=== PATIENT | male | born 1995 | race Caucasian/White ===

== ENCOUNTER 2024-06-09 21:35 | Emergency (ER) | payer OTHER, SELFPAY ==
[2024-06-09 21:44] VITALS: BP 133/90
--- NOTE | 2024-06-09 23:10 | EDRN ---
pt states he was at work at [employer], he was cutting out a windshield when a small piece of glass hit his right eye. pt states he was wearing protective glasses. pt states he irrigated his eye but still feels something moving in his eye.
--- NOTE | 2024-06-09 23:10 | ED.GENMED ---
History of Present Illness
General
Chief Complaint: Eye Problems
Source: patient
Exam Limitations: none
Time Seen by Provider: 06/09/24 23:09
Nursing documentation reviewed up to this point in time: agreed with
History of Present Illness
History of Present Illness:
This is a 28-year-old male with past medical history of corneal abrasions presents emergency department today with concerns of transient foreign body sensation and discomfort in his right eye. Patient reports that he was at work today and was
wearing eye protection when he was installing [employer] when the piece broke off and he felt a piece of glass fly into his eye. Patient states that when he went home from work, he immediately irrigated his eye with normal saline multiple times that
he got from his friend who is a doctor. Patient reports that he would have on and off sensation of something moving around his eye. He subsequently rinsed his eye again 2 more times and eventually the foreign body sensation went away however his
eye started to come up a bit red and irritated. Patient also states that he had one episode of purulent drainage from the right eye that has since resolved. He denies any blurry vision. He denies any visual loss. He denies any headache, neck
pain, dizziness, lightheadedness, loss of consciousness. Patient states that he has had multiple corneal abrasions in the same eye in the past from work-related injuries but is never seen an embedded case manager before.
Review of Systems
Review of Systems
All Other Systems: ROS reviewed and negative except as documented in HPI and ROS
Phy Exam
Physical Exam
Physical Exam:
General: Patient is well appearing and in no acute distress; non-toxic
Skin: Warm and dry, no rashes or lesions
Head: Normocephalic, atraumatic. No facial swelling or edema
Eyes: EOMs intact, right scleral injection noted, no foreign body with eyelid eversion, lateral scleral abrasion noted no fluorescein uptake over the cornea; right eye visual Acquity 20/16, left eye 20/6; no evidence of purulent drainage in the
right eye
Cardiac: Regular rate and rhythm, no murmurs
Peripheral Vascular: No lower extremity swelling or edema
Pulm: Normal respiratory effort
Neuro: CN II-XII intact, no focal neurologic deficits.
Psychiatric: Appropriate mood and affect.
Course
Orders/Labs/Results
Orders:
Orders
06/09/24 23:54
Fluorescein Sodium [Ful-Xiao] 2 mg .ROUTE .STK-MED ONE
Purified Water Eye Wash [Dacriose Eye Wash Solution] 120 ml .ROUTE .STK-MED ONE
Tetracaine HCl [Tetracaine 0.5% Ophthalmic Solution] 1 drop .ROUTE .STK-MED ONE
Vital Signs
Initial and Last Documented VS:
Initial Vital Signs
Temp Pulse Resp BP Pulse Ox
98.2 F 77 18 133/90 98
06/09/24 21:44 06/09/24 21:44 06/09/24 21:44 06/09/24 21:44 06/09/24 21:44
Last Documented Vital Signs
Temp Pulse Resp BP Pulse Ox
98.2 F 77 18 133/90 98
06/09/24 21:44 06/09/24 21:44 06/09/24 21:44 06/09/24 21:44 06/09/24 21:44
MDM/Problems Addressed
Differential Diagnosis Includes:
ddx include corneal abrasion, corneal ulcer, conjunctivitis, ocular foreign body
MDM/Problems Addressed:
This is a 28-year-old male with past medical history of corneal abrasions presents emergency department today with concerns of transient foreign body sensation and discomfort in his right eye. Upon my evaluation, he has no sensation of foreign
body, no blurry vision but does have some mild pain and scleral injection. On exam, is no fluorescein take in the cornea but does have a scleral abrasion, he has no foreign body with eyelid eversion. He irrigated well at home. Use of antibiotic
eyedrops and continuing to irrigate with saline at home. Patient stable for discharge. Did stress importance of follow-up with ophthalmology. Red flag return precautions discussed.
Chronic conditions affecting care:
n/a
*Pulse Oximetry
Patient hypoxic: no
*Critical Care Note
Total Time (30-74mins, 75-104mins- exclusive of procedures): Not Applicable
Data Reviewed
Review of Other/Old Records Reveals: Records (No previous ER physician documentation to review)
Source: patient and records
ED Attending Note
-
Portions of this chart may have been created with voice recognition software.� Occasional wrong word or��sound alike� substitutions may have occurred due to the inherent limitations of voice recognition software.
Discharge Plan
Departure
Patient Disposition: Home (Routine Discharge)
Date of Disposition: 06/09/24
Time of Disposition: 23:44
Patient with high blood pressure during this ER visit?: No
Condition: Good
Discharge Problem:
Abrasion of sclera of right eye
Instructions: Foreign Body in Eye ED, BLOOD PRESSURE
Prescriptions:
New
ofloxacin 0.3 % drops
2 drp ophthalmic (eye) QID 5 Days Qty: 5 0RF
Referrals:
NONE,* [Family Provider] -
Ina Singh MD [Active] - Call in 1-3 days for appt
Activity Restrictions/Additional Instructions:
With fluorescein staining, there is no evidence of corneal abrasion or ulcer. There is a abrasion on the sclera which is less concerning. Please start taking ofloxacin eyedrops. You can instill 2 drops into the affected eye 4 times daily for 5
days.
Ophthalmology: call attached number for Dr. Singh's office to schedule an appointment.
Please continue to irrigate your eye with saline multiple times per day for the next few days.
You can alternate Tylenol and Motrin for pain.
PLEASE RETURN EMERGENCY DEPARTMENT SHOULD YOU DEVELOP VISUAL LOSS, ACUTE WORSENING OF YOUR PAIN, BLEEDING, FURTHER PURULENT DRAINAGE FROM YOUR EYE, FEVERS OR CHILLS, REDNESS OR SWELLING OF YOUR FACE, OR ANY OTHER SIGNS OR SYMPTOMS WORRISOME TO YOU.
Interventions
Interventions:
*Risk Screen - Suicide Last Done: 06/09/24 21:44
*General Assessment Last Done: 06/09/24 21:44
*Neglect/Abuse Screening Last Done: 06/09/24 21:44
*ED- Fall Risk Assessment Last Done: 06/09/24 21:44
*ED COVID-19 Vaccine History Last Done: 06/09/24 21:44
*Nursing Disposition Last Done: 06/10/24 00:17
Discharge Date and Time
Discharge Date/Time: 06/10/24 00:17
Print Language: KENYAN
--- NOTE | 2024-06-09 23:43 | EDRN ---
When RN asked pt. if he is supposed to wear corrective lenses pt. stated, 'my doctor did tell me I should wear corrective lenses, but the told me I don't need to, so I don't wear any. My left eye is the eye I have a hard time seeing out of'.
== END 2024-06-10 00:17 | disposition home or self-care (01) ==
LOC: EMR 21:35
PROVIDERS: EMERGENCY PHYSICIAN Student in an Organized Health Care Education/Training Program
DX: S05.01XA Injury of conjunctiva and corneal abrasion without foreign body, right eye, initial encounter (principal); W20.8XXA Other cause of strike by thrown, projected or falling object, initial encounter
CPT/HCPCS: 99283

== ENCOUNTER 2024-11-12 21:10 | Emergency (ER) | payer SELFPAY ==
[2024-11-12 21:16] VITALS: BP 137/101
[2024-11-12 21:33] VITALS: BMI 29.4
[2024-11-12] MEDS: FLEXERIL 10 MG PO (23:14)
[2024-11-12] MEDS: PERCOCET 5/325 1 TABLET PO (23:14)
--- NOTE | 2024-11-13 00:32 | ED.GENMED ---
History of Present Illness
General
Chief Complaint: Back Pain
Time Seen by Provider: 11/12/24 22:15
Course
Orders/Labs/Results
Orders:
Orders
11/12/24 22:38
Cyclobenzaprine HCl [Flexeril] 10 mg PO NOW STA
Oxycodone/Acetaminophen [Percocet 5/325] 1 tablet PO NOW STA
11/12/24 22:46
CT Lumbar Spine W/o Iv Contras Urgent
Comment:
Reason For Exam: LBP, compression feeling
11/13/24 00:28
Ketorolac [Toradol] 15 mg IV NOW STA
11/13/24 01:08
Dexamethasone Pf [Decadron] 10 mg PO NOW STA
Vital Signs
Initial and Last Documented VS:
Initial Vital Signs
Temp Pulse Resp BP Pulse Ox
97.9 F 89 18 137/101 98
11/12/24 21:16 11/12/24 21:16 11/12/24 21:16 11/12/24 21:16 11/12/24 21:16
Last Documented Vital Signs
Temp Pulse Resp BP Pulse Ox
97.9 F 89 18 137/101 98
11/12/24 21:16 11/12/24 21:16 11/12/24 21:16 11/12/24 21:16 11/13/24 00:32
*Radiology
Radiology exam reviewed: radiology read reviewed
*Pulse Oximetry
SaO2: 98
Oxygen Mode of Delivery: Room air
Patient hypoxic: no
*Critical Care Note
Total Time (30-74mins, 75-104mins- exclusive of procedures): Not Applicable
Update Note
Update Note:
NAME: LENIN KOO
DATE OF EXAM: 11/12/2024
Patient No: [id number]
Physician: BENJI^Alex
Date of : 1995
Past Medical History (entered by Technologist):
Reason For Exam (entered by Technologist):
Other Notes (entered by Technologist): patient c/o lower back pain after stepping of sidewalk
Additional Information (per Vision Radiologist):
CT L SPINE
IMPRESSION:
No acute fracture or malalignment.
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 This is resulting in mild central canal and moderate bilateral
neuroforaminal stenosis.
Case finalized on 11/12/24 23:23 EDT
Renan Cuadra M.D.
This report has been electronically signed and verified by the Radiologist whose name is printed above.
ED Attending Note
-
Portions of this chart may have been created with voice recognition software.� Occasional wrong word or��sound alike� substitutions may have occurred due to the inherent limitations of voice recognition software.
Discharge Plan
Departure
Patient Disposition: Home (Routine Discharge)
Date of Disposition: 11/13/24
Time of Disposition: 01:09
Patient with high blood pressure during this ER visit?: Yes
Condition: Fair
Discharge Problem:
Low back pain
Instructions: Low Back Pain (DC), BLOOD PRESSURE
Prescriptions:
New
cyclobenzaprine 10 mg tablet
10 mg PO BID PRN (Reason: pain ) Qty: 10 0RF
diclofenac sodium 75 mg tablet,delayed release (DR/EC)
75 mg PO BID PRN (Reason: Pain) Qty: 14 0RF
No Action
ibuprofen 200 mg Capsule
200 mg PO PRN PRN (Reason: Back pain)
Referrals:
Lenin Ingram, DO [Non-Admitting Privileges, Orthopedics]
NONE,* [Family Provider, Internal Medicine]
Stand Alone Forms: Return to Work
Activity Restrictions/Additional Instructions:
Your prescriptions were sent electronically to the pharmacy that you specified.
Thank You for choosing [facility] [address].
It was a pleasure meeting you and taking part in your care. We hope for your continued healing and wellness.
Please read discharge instructions in their entirety. However, they are for general education and may not describe your exact diagnosis at discharge. Information on your ER visit and medical conditions were discussed with you along with appropriate
follow up information...
If indicated, please take your medications as instructed and indicated on discharge paperwork.
Please schedule a follow up appointment as directed. Call to schedule an appointment
Please return to the emergency department with ANY change in, persisting, or worsening of symptoms. If any of your symptoms do not improve, or persist, or become more severe within 6-12 hours, please return to the emergency department for further
care.
Please return to the emergency department if you develop a headache, neck pain/stiffness, fever greater than 100.4F, chest pain, shortness of breath, persistent nausea, vomiting, slurred speech, difficulty walking, numbness/tingling, weakness, signs
of infection or any other symptoms that are worrisome to you.
If you have any questions or concerns please do not hesitate to call the Hospital at or E-mail me directly at [email or web address]
Interventions
Interventions:
*Risk Screen - Suicide Last Done: 11/12/24 21:16
*General Assessment Last Done: 11/12/24 21:36
*Neglect/Abuse Screening Last Done: 11/12/24 21:36
*ED- Fall Risk Assessment Last Done: 11/12/24 21:36
*ED COVID-19 Vaccine History Last Done: 11/12/24 21:36
ED-Musculoskeletal Assessment Last Done: 11/12/24 21:36
Discharge Date and Time
Print Language: RUSSIAN
[2024-11-13] MEDS: DECADRON 10 MG PO (01:19)
[2024-11-13 01:21] VITALS: BP 156/83
== END 2024-11-13 01:27 | disposition home or self-care (01) ==
LOC: EMR 21:10
PROVIDERS: EMERGENCY PHYSICIAN Student in an Organized Health Care Education/Training Program
DX: M51.360 Other intervertebral disc degeneration, lumbar region with discogenic back pain only (principal); M48.061 Spinal stenosis, lumbar region without neurogenic claudication
CPT/HCPCS: 99284; 96374; 72131

== ENCOUNTER → 2025-01-27 12:19 | Outpatient (REF) | payer OTHER, SELFPAY | LOC: RAD 12:19 | PROVIDERS: ATTENDING PHYSICIAN Physical Medicine & Rehabilitation | DX: S05.50XA Penetrating wound with foreign body of unspecified eyeball, initial encounter (principal) | CPT/HCPCS: 70030 ==